=== PATIENT | female | born 1995 | race Caucasian/White ===

== ENCOUNTER 2016-10-06 08:59 | Emergency (ER) | payer BC ==
[~2016-10-06] VITALS: Wt 77.0 kg
[~2016-10-06 08:59] MED LIST: ACET325T33 PO; FERR325T82; PREN-52; [UNRECOGNIZED DRUG - CODE]
[2016-10-06] MEDS ORDERED: OSLT75C PO (09:31)
--- NOTE | 2016-10-06 09:31 | ERD ---
ER Documentation Chief Complaint Date/Time DATE: 10/06/16 Chief Complaint Flu symptoms, 37 weeks HPI The patient is a 21-year-old female, A0, approximately 37 weeks , who presents to the Emergency Department with complaint of flu-like symptoms for the past day. She reports that her symptoms began yesterday, with onset of mild dry cough, body aches, chills, fevers, rhinorrhea and eye lacrimation. She denies any chest pain, palpitations or shortness of breath. Denies neck pain or neck stiffness. Denies ear pain, sore throat or new rashes. Denies headache, dizziness, weakness, lower extremity edema. Denies abdominal pain, nausea, vomiting or diarrhea. Denies vaginal bleeding or new vaginal discharge. Denies any sick contacts. Patient did not receive an influenza vaccination this year. ROS All systems reviewed and are negative except as per history of present illness. Medications Home Meds Active Scripts Oseltamivir Phosphate* (Tamiflu*) 75 Mg Capsule, 75 MG PO BID for 5 Days, CAP Prov:KOKI MARCELINO PA-C 10/06/16 Reported Medications Calcium Carbonate* (Calcium Carbonate*) 600 MG Ca Tab, 600 MG PO DAILY, TAB 10/06/16 Ferrous Sulfate* (Ferrous Sulfate*) 325 Mg Tabec, 325 MG PO DAILY, TAB 10/06/16 Ferrous Sulfate (ASTRID-TIME) 325 Mg Tablet 02/10/14 Vit#42/Fa Cmb#6 (PRENA1 CHEW TABLET) 1 Mg Tab.chew, DAILY 02/10/14 Discontinued Reported Medications Calcium Lactate (Calcium Lactate) 454 Gm Powder, 648 DAILy 02/10/14 Discontinued Scripts Loratadine* (Loratadine*) 10 Mg Tablet, 10 MG PO DAILY, #14 TAB Prov:KOKI MARCELINO PA-C 10/06/16 Acetaminophen* (Tylenol*) 325 Mg Tablet, 1 TAB PO Q6 Y for PAIN AND OR ELEVATED TEMP, #20 TAB Prov:ALICIA LEWIS PA-C 04/15/16 Allergies Allergies: Coded Allergies: No Known Allergy (Unverified , 05/08/16) PMhx/Soc Medical and Surgical Hx: pt denies Medical Hx, pt denies Surgical Hx Hx Alcohol Use: No Hx Substance Use: No Hx Tobacco Use: No Physical Exam Vitals Vital Signs Date Time Temp Pulse Resp B/P Pulse Ox O2 Delivery O2 Flow Rate FiO2 10/06/16 09:08 98.1 111 18 121/88 99 Physical Exam GENERAL: Well-developed, well-nourished, in no acute distress HEENT: Head is normocephalic, atraumatic. No scleral pallor or icterus. Pupils equal, round and reactive to light. Extraocular movements intact. Conjunctiva pink. Nares are patent bilaterally. Bilaterally tympanic membranes are clear with no evidence of erythema, effusion or dulling of the light reflex. Moist mucous membranes. No pharyngeal erythema or exudates. NECK: Supple. No masses, no tenderness, no lymphadenopathy. Full range of motion. No nuchal rigidity. RESPIRATORY: Lungs are clear to auscultation bilaterally. No rales, rhonchi or wheezing. Equal breath sounds. Normal expiratory effort. CARDIOVASCULAR: Regular rate and rhythm. S1 and S2 normal. GASTROINTESTINAL: . Abdomen is soft, non-tender, and non-distended. Normal bowel sounds. EXTREMITIES: No clubbing, cyanosis, or edema. Distal pulses are palpable, 2+ bilaterally. Capillary refill is less than 2 seconds. MUSCULOSKELETAL: No injury or deformities. NEUROLOGIC: The patient is alert, awake, and oriented x 3. No focal neurologic deficits. Gait is observed and normal. INTEGUMENT: Skin is clean, dry and intact. PSYCHIATRIC: Appropriate; Cooperative. Procedures/MDM The patient is a 21-year-old female, A0, approximately 37 weeks , presenting to the Emergency Department with one day of fevers, nasal rhinorrhea, eye lacrimation, myalgias, chills, and cough. On initial presentation, the patient was afebrile, but tachycardic with a heart rate of 111. Otherwise, no tachypnea, no signs of respiratory distress. She had a normal O2 saturation on room air. The differential diagnosis includes, but is not limited to, upper respiratory infection, sepsis, meningitis, otitis media, pneumonia, pertussis, croup, pharyngitis, otitis externa, bronchitis. Upon my review and interpretation of the patient's presentation and overall ER course, I believe the patient's symptoms are most consistent with upper respiratory infection, suspicious for influenza. Given high risk status, will treat empirically with Tamiflu. The patient is well-appearing. The patient had no clinical evidence of pneumonia. Patient's neck was supple, with no altered mental status, and therefore I doubt meningitis. Oropharynx was clear, with no erythema, exudates, petechiae, with no associated anterior cervical lymphadenopathy, and therefore I doubt streptococcal pharyngitis. Tympanic membranes were clear bilaterally, with no erythema or bulging noted, and therefore I doubt otitis media. At this time, the patient is in stable condition and not experiencing any signs of distress, and therefore can be discharged home with a prescription for Tamiflu and strict return precautions for signs of deteriorating or worsening condition. The patient is advised to follow up with her RANGE TECHNICIAN within 1-2 days for reevaluation and further management or return to the ER sooner for any worsening symptoms. I shared my medical decision making and plan with the patient at length and in great detail, and they verbally understand and agree with the plan for further observation and care as an outpatient. At the time of discharge all questions were answered. Departure Diagnosis: Primary Impression: Influenza-like illness Additional Impression: Upper respiratory infection URI type: unspecified URI Qualified Code: J06.9 - Upper respiratory tract infection, unspecified type Condition: Stable Patient Instructions: Influenza , Preventing Common Respiratory Infections Additional Instructions: Follow up with your RANGE TECHNICIAN within 1-2 days for reevaluation and further management. Return to the ED sooner for any new or worsening symptoms. Please go up to L&D immediately following discharge from the ED for clearance. KOKI MARCELINO PA-C Oct 06, 2016 09:30
[2016-10-06] MEDS ORDERED: LORA10TA3 PO (09:32)
[2016-10-06] MEDS ORDERED: CALC600T11 PO (09:58)
[2016-10-06] MEDS ORDERED: FER325 PO (09:58)
== END 2016-10-06 09:46 | disposition home or self-care (01) ==
LOC: FTE 08:59
DX: O99.513 Diseases of the respiratory system complicating pregnancy, third trimester (principal); J06.9 Acute upper respiratory infection, unspecified; R05 Cough; R50.9 Fever, unspecified; J34.89 Other specified disorders of nose and nasal sinuses; Z3A.37 37 weeks gestation of pregnancy
CPT/HCPCS: 99283

== ENCOUNTER 2016-10-06 09:49 | Outpatient (CLI) | payer BC ==
[~2016-10-06] VITALS: Ht 157.5 cm; Wt 77.3 kg
[~2016-10-06 09:49] MED LIST changes: +LORA10TA3 PO; +OSLT75C PO
[2016-10-06 09:58] VITALS: Ht 157.5 cm; Wt 77.3 kg
[2016-10-06] MEDS ORDERED: CALC600T11 PO (09:58)
[2016-10-06] MEDS ORDERED: FER325 PO (09:58)
[2016-10-06 09:59] VITALS: BP 119/82; PULSE 109; RESP 20
[2016-10-06] MEDS ORDERED: BETAMET NA PHOS/AC(6 MG/ML) 5ML INJ IM ONE (11:00)
--- NOTE | 2016-10-06 11:01 | RADRPT ---
PROCEDURE: OB ultrasound for biophysical profile CLINICAL INDICATION: Contractions TECHNIQUE: Multiple sonographic images of the pelvis were obtained. Transabdominal views of the g ravid uterus are available for review. The images were reviewed on a PACS workstation. COMPARISON: None FINDINGS: breathing movement = 2/2 tone = 2/2 motion = 2/2 DREW = 2/2 DREW = 10.9 cm Single live intrauterine with cardiac activity of 173 bpm. position is cephal ic. The placenta is fundal. IMPRESSION: 1. Single live intrauterine gestation. 2. Biophysical profile = 8/8. 3. DREW = 10.9 cm. RPTAT: HH .Hailey Elder MD, MD Date Time Electronically viewed and signed by .Hailey Elder MD, on 10/06/2016 11:01 .G/
[2016-10-06] MEDS ORDERED: AMPICILLIN 1 GM/NS (PMX) 50 ML IVPB SCH (12:00)
== END 2016-10-06 11:21 | disposition home or self-care (01) ==
LOC: OBT 09:49 → L-D 09:50 → OBT 11:21
PROVIDERS: ATTEND Obstetrics & Gynecology
DX: O62.9 Abnormality of forces of labor, unspecified (principal); Z3A.37 37 weeks gestation of pregnancy
CPT/HCPCS: 76818; Z7500; G0463

== ENCOUNTER 2016-10-22 14:22 | Inpatient (IN) | payer BC ==
--- NOTE | 2016-10-06 16:30 | QN ---
Documentation Comment 21 years old with IUP at 37 weeks and 4 days with care with Dr. Marcial presented with cold symptoms and cough and body ache for the past 2 days. Has been seen in ED for above symptoms and was referred to L&D for Ob evaluation. Patient denies any vaginal bleeding, LOF, uterine contractions, decreased movement, fever or chills,. dysuria, headache, blurred vision or epigastric pain. Complains of cough and fatigue and body ache and cold symptoms. She denies any complications in her care. Vitals are stable GA: A&O, in mild distress Lungs; CTA bilaterally O2 normal in Ra CV: RRR Abdomen: Soft, non tender, gravid Fundal height is appropriate for GA Extremities: No calf tenderness, no click, no edema NST,: Cat 1 no contractions on the monitor Assessment: IUP at 37 weeks and 4 days Cold symptoms No obstetric issue at this time Not in labor DC home Labor precaution and FKC Follow up with OB clinic in 2-3 days RT ED if Fever, chills, LOF, vaginal bleeding, decreased movement or any other concerns ORTZI ATKINSON MD Oct 06, 2016 16:29
[~2016-10-22] VITALS: Ht 157.5 cm; Wt 79.0 kg
[~2016-10-22 14:22] MED LIST changes: -ACET325T33 PO; +CALC600T11 PO; +FER325 PO; -LORA10TA3 PO; -[UNRECOGNIZED DRUG - CODE]
[2016-10-22 14:40] VITALS: Ht 157.5 cm; Wt 79.0 kg
--- NOTE | 2016-10-22 15:23 | RADRPT ---
PROCEDURE: US OB. CLINICAL INDICATION: Post dates. TECHNIQUE: Multiple sonographic images of the uterus were obtained. The images were revi ewed on a PACS workstation. COMPARISON: 05/08/2016. FINDINGS: There is a single live intrauterine gestation. heart rate is 137 beats per minute. Measurements were made in order to determine age. The results are as follows: BPD = 8.73 cm. HC = 30.96 cm. AC = 34.21 cm. FL = 6.96 cm. Estimated weight is 3036 +/- 455 grams. LMP growth percentile is 10.3 %. Menstrual age by ultrasound dates is 36 weeks 0 days. The estimated date of delivery is 11/19/2016. Position is cephalic and placenta is fundal grade II. There is no evidence for an abruption or place nta previa. IMPRESSION: 1. Single live intrauterine gestation of 36 weeks 0 days menstrual age by ultrasound dates. 2. The estimated date of delivery is 11/19/2016 by today's ultrasound. RPTAT: QQ .Mc Tiwari MD, MD Date Time Electronically viewed and signed by .Mc Tiwari MD, on 10/22/2016 15:23 .R/
--- NOTE | 2016-10-22 15:25 | RADRPT ---
PROCEDURE: US biophysical profile. CLINICAL INDICATION: Post dates. TECHNIQUE: Multiple sonographic images of the uterus were obtained. The images were revi ewed on a PACS workstation. COMPARISON: 10/06/2016. FINDINGS: There is a single live intrauterine gestation. heart rate is 136 beats per minute. The position is cephalic. The placenta is fundal grade II with no abruption or previa. The DREW is 14.3 cm. (Normal = 5-20 cm.) Breathing Movement: 2 Gross Body Movement: 2 Tone: 2 Qualitative Amniotic Fluid Volume: 2 TOTAL: 8 IMPRESSION: 1. The biophysical score is 8/8. RPTAT: QQ .Mc Tiwari MD, Date Time Electronically viewed and signed by .Mc Tiwari MD, on 10/22/2016 15:25 .R/
--- NOTE | 2016-10-22 17:51 | HP ---
Date/Time of Note Date/Time of Note DATE: 10/22/16 TIME: 17:50 OB - History Hx of Present Free Text/Dictation @40+wks IUGR : 3 Para: 2 Care: Good Care Ultrasounds: Normal mid trimester US Obstetrical Complications: None Medical Complications: None Past Family/Social History * Past Medical, Surgical, Family and Obstetric Histories reviewed from chart. OB Admission Exam Physical Exam HEENT: WNL Abdomen: WNL Extremities: Normal Heart Rate: 140's Accelerations: Accelerations Present Decelerations: No Decelerations Varibility: Moderate Contractions on Admission: 6-10 Minutes Apart OB Assessment/Plan Reason for admission: induction of labor Plan: Induction Other plan: Anticipated SARANYA RENEE M.D. Oct 22, 2016 17:51
[2016-10-22] MEDS ORDERED: MISOPROSTOL 200 MCG TAB PR PRN (18:00)
[2016-10-22] MEDS ORDERED: LACTATED RINGER'S 1,000 ML IV PRN (18:00)
[2016-10-22] MEDS ORDERED: METHYLERGONOVINE 0.2 MG INJ IM PRN (18:00)
[2016-10-22] MEDS ORDERED: BUTORPHANOL 2 MG INJ IV PRN ×2 (18:00)
[2016-10-22] MEDS ORDERED: AMPICILLIN 2 GM/NS (PMX) 100 ML IV ONE (18:00)
[2016-10-22] MEDS ORDERED: LIDOCAINE 1% (MPF) 30 ML INJ INJ PRN (18:00)
[2016-10-22] MEDS ORDERED: CARBOPROST 250 MCG INJ IM PRN (18:00)
[2016-10-22] MEDS ORDERED: DINOPROSTONE 10 MG VAG SUPP VAG ONE (18:00)
[2016-10-22] MEDS ORDERED: OXYTOCIN 30 UNITS/LR 500 ML IV PRN (18:00)
[2016-10-22] MEDS: LACTATED RINGER'S 1,000 ML IV SCH (18:16)
[2016-10-22 18:42] LABS: BASOPHIL # 0.1 10^3/ul (0.0-0.1); BASOPHILS % 0.4 % (0.0-2.0); EOSINOPHILS % 0.4 % (0.0-7.0); HEMATOCRIT 33.8 % (37.0-47.0); HEMOGLOBIN 11.3 g/dl (12.0-16.0); LYMPHOCYTES # 2.1 10^3/ul (0.8-2.9); LYMPHOCYTES % 16.9 % (15.0-51.0); MEAN CORPUSCULAR HEMOGLOBIN 28.4 pg (29.0-33.0); MEAN CORPUSCULAR HGB CONC 33.4 g/dl (32.0-37.0); MEAN PLATELET VOLUME 8.5 fl (7.4-10.4); MONOCYTE # 0.5 10^3/ul (0.3-0.9); MONOCYTES % 4.4 % (0.0-11.0); NEUTROPHIL # 9.5 10^3/ul (1.6-7.5); NEUTROPHILS % 77.9 % (39.0-77.0); PLATELET COUNT 317 10^3/UL (140-440); RED BLOOD COUNT 3.97 10^6/ul (4.20-5.40); RED CELL DISTRIBUTION WIDTH 13.6 % (11.5-14.5); UNCORRECTED WBC 12.2 10^3/ul (4.8-10.8); WHITE BLOOD COUNT 12.2 10^3/ul (4.8-10.8)
[2016-10-22 18:46] LABS: CONDITION 1
[2016-10-22 18:55] LABS: INR 0.91; PROTIME 12.2 Sec (12.2-14.2)
[2016-10-22 18:56] LABS: PARTIAL THROMBOPLASTIN TIME 29.7 Sec (25.0-35.0)
[2016-10-22] MEDS: AMPICILLIN 1 GM/NS (PMX) 50 ML IV SCH (21:34)
[2016-10-23] MEDS: LACTATED RINGER'S 1,000 ML IV SCH (02:02)
[2016-10-23] MEDS: AMPICILLIN 1 GM/NS (PMX) 50 ML IV SCH ×3 (02:02→10:03)
[2016-10-23] MEDS: OXYTOCIN 30 UNITS/LR 500 ML IV SCH ×5 (10:52→20:50)
--- NOTE | 2016-10-23 11:08 | LDN ---
Date/Time of Note Date/Time of Note DATE: 10/23/16 TIME: 11:03 Delivery Summary 20 years old G 3 P2 EDC 10/22/2016 induced with Cervidil yesterday , progress to compleat dilatation and . Placenta Delivered: Spontaneously Meconium: none Perineum intact?: No Perineal laceration: 1 Anesthesia type: Local Estimated blood loss: 100 Sponge & Needle done & correct: Yes All needle counts correct: Yes Any foreign bodies felt in the: No Problems: Delivery Information Sex Sex: male Apgars 1 Minute: 9 5 Minute: 9 Suctioning Nose & mouth suctioned at curtis: Yes Delee suction performed: No Umbilical Cord Umbilical cord with: 3 Vessels Cord presentations: no nuchal cord Cord Blood was obtained: Yes Mother & Baby Disposition Disposition Mom & Baby to Maternity; Good: Yes Mom transferred to: Med/Surg Baby to NICU: No MARTA ALBRECHT MD Oct 23, 2016 11:08
[2016-10-23] MEDS ORDERED: METHYLERGONOVINE 0.2 MG INJ IM PRN (13:00)
[2016-10-23] MEDS ORDERED: SENNA/DOCUSATE NA (8.6MG/50MG) TAB PO PRN (13:00)
[2016-10-23] MEDS ORDERED: BENZOCAINE 20% 56 ML SPRAY TOP PRN (13:00)
[2016-10-23] MEDS ORDERED: MISOPROSTOL 200 MCG TAB PR PRN (13:00)
[2016-10-23] MEDS ORDERED: CARBOPROST 250 MCG INJ IM PRN (13:00)
[2016-10-23] MEDS ORDERED: LANOLIN 7 GM TUBE TOP PRN (13:00)
[2016-10-23] MEDS ORDERED: OXYTOCIN 30 UNITS/LR 500 ML IV PRN (13:00)
[2016-10-23] MEDS ORDERED: WITCH HAZEL/GLYCERIN PAD PR PRN (13:00)
[2016-10-23] MEDS ORDERED: OXYCODONE/ASPIRIN (4.88/325) TAB PO PRN ×2 (13:00)
[2016-10-23] MEDS ORDERED: DIBUCAINE 1% 30 GM OINT PR PRN (13:00)
[2016-10-23] MEDS ORDERED: ACETAMINOPHEN 500 MG TAB PO PRN (13:00)
[2016-10-23 13:15] VITALS: BP 125/71; PULSE 55; RESP 18
[2016-10-23] MEDS: IBUPROFEN 600 MG TAB PO PRN ×3 (13:17→23:27)
[2016-10-23 16:00] VITALS: BP 111/59; PULSE 73; RESP 18
[2016-10-23 20:00] VITALS: BP 124/66; PULSE 79; RESP 20
[2016-10-24] MEDS: OXYTOCIN 30 UNITS/LR 500 ML IV SCH ×6 (00:50→20:50)
[2016-10-24 03:42] VITALS: BP 109/62; PULSE 78; RESP 20
[2016-10-24 07:14] LABS: BASOPHILS % 0.4 % (0.0-2.0); EOSINOPHILS # 0.1 10^3/ul (0.0-0.5); EOSINOPHILS % 1.1 % (0.0-7.0); HEMATOCRIT 28.5 % (37.0-47.0); HEMOGLOBIN 9.6 g/dl (12.0-16.0); LYMPHOCYTES # 2.3 10^3/ul (0.8-2.9); LYMPHOCYTES % 22.5 % (15.0-51.0); MEAN CORPUSCULAR HEMOGLOBIN 29.1 pg (29.0-33.0); MEAN CORPUSCULAR HGB CONC 33.9 g/dl (32.0-37.0); MEAN CORPUSCULAR VOLUME 85.8 fl (82.0-101.0); MEAN PLATELET VOLUME 8.5 fl (7.4-10.4); MONOCYTE # 0.5 10^3/ul (0.3-0.9); MONOCYTES % 4.9 % (0.0-11.0); NEUTROPHIL # 7.3 10^3/ul (1.6-7.5); NEUTROPHILS % 71.1 % (39.0-77.0); PLATELET COUNT 262 10^3/UL (140-440); RED BLOOD COUNT 3.32 10^6/ul (4.20-5.40); RED CELL DISTRIBUTION WIDTH 13.3 % (11.5-14.5); UNCORRECTED WBC 10.3 10^3/ul (4.8-10.8); WHITE BLOOD COUNT 10.3 10^3/ul (4.8-10.8)
[2016-10-24 07:22] LABS: CONDITION 1
[2016-10-24 08:10] VITALS: BP 96/57; PULSE 62; RESP 19
[2016-10-24] MEDS ORDERED: INFLUENZA VIRUS VACCINE 0.5 ML (DISPENSING) IM* ONE (11:00)
[2016-10-24] MEDS: IBUPROFEN 600 MG TAB PO PRN ×2 (11:43→23:34)
[2016-10-24 15:20] VITALS: BP 99/58; RESP 18
--- NOTE | 2016-10-24 16:52 | PN ---
Date/Time of Note Date/Time of Note DATE: 10/24/16 TIME: 16:51 Assessment/Plan VTE Prophylaxis VTE Prophylaxis Intervention: ambulation Assessment/Plan Assessment/Plan ppd1 pt doing well exam wnl continue care Exam/Review of Systems Vital Signs Vitals Vital Signs Date Time Temp Pulse Resp B/P Pulse Ox O2 Delivery O2 Flow Rate FiO2 10/24/16 15:20 98.2 18 99/58 10/24/16 08:10 62 Room Air Intake and Output 10/23/16 10/23/16 10/24/16 15:00 23:00 07:00 Intake Total 375 ml 500 ml Output Total 1150 ml 400 ml Balance -775 ml 100 ml Results Result Diagram: 10/24/16 0631 Results 24 hrs Laboratory Tests Test 10/24/16 06:31 Basophils # 0.0 Basophils % 0.4 Eosinophils # 0.1 Eosinophils % 1.1 Hematocrit 28.5 L Hemoglobin 9.6 L Lymphocytes # 2.3 Lymphocytes % 22.5 Mean Corpuscular Hemoglobin 29.1 Mean Corpuscular Hemoglobin Concent 33.9 Mean Corpuscular Volume 85.8 Mean Platelet Volume 8.5 Monocytes # 0.5 Monocytes % 4.9 Neutrophils # 7.3 Neutrophils % 71.1 Nucleated Red Blood Cells # 0.0 Nucleated Red Blood Cells % 0.0 Platelet Count 262 Red Blood Count 3.32 L Red Cell Distribution Width 13.3 White Blood Count 10.3 Medications Medications Current Medications Oxycodone/Aspirin (Percodan) 1 tab Q3H PRN PO PAIN LEVEL 1-5; Start 10/23/16 at 13:00 Oxycodone/Aspirin (Percodan) 2 tab Q3H PRN PO PAIN LEVEL 6-10; Start 10/23/16 at 13:00 Senna/Docusate Sodium (Senokot-S) 1 tab BID PRN PO CONSTIPATION Last administered on 10/24/16t 08:55; Admin Dose 1 TAB; Start 10/23/16 at 13:00 Diphtheria/ Tetanus/Acell Pertussis 0.5 ml 0.5 ml ONCE ONCE IM* ; Start at 09:00; Stop 10/25/16 at 09:01 Oxytocin/Lactated Ringer's 500 ml @ 0 mls/hr ONCE PRN IV For Hemorrhage Management; Start 1/21/17 at 13:00 Methylergonovine Maleate (Methergine) 0.2 mg ONCE PRN IM VAGINAL BLEEDING; Start 10/23/16 at 13:00 Carboprost Tromethamine (Hemabate) 250 mcg ONCE PRN IM VAGINAL BLEEDING; Start 10/23/16 at 13:00 Misoprostol 1000 mcg 1,000 mcg ONCE PRN MT VAGINAL BLEEDING; Start 10/23/16 at 13:00 Oxytocin/Lactated Ringer's 500 ml @ 125 mls/hr Q4H IV Last administered on 16:00; Admin Dose 125 MLS/HR; Start 10/23/16 at 12:50 Ibuprofen (Motrin) 600 mg Q6H PRN PO PAIN Last administered on 10/24/16 11:43 ; Admin Dose 600 MG; Start 10/23/16 at 13:00 Acetaminophen (Tylenol Tab) 500 mg Q6H PRN PO PAIN AND OR ELEVATED TEMP; Start 10/23/16 at 13:00 ALEJANDRO ARTHUR MD Oct 24, 2016 16:52
[2016-10-24 20:00] VITALS: BP 120/62; PULSE 74; RESP 20
[2016-10-25] MEDS: OXYTOCIN 30 UNITS/LR 500 ML IV SCH ×2 (00:50→04:50)
[2016-10-25 04:17] VITALS: BP 123/70; PULSE 72; RESP 20
[2016-10-25] MEDS: IBUPROFEN 600 MG TAB PO PRN (05:38)
[2016-10-25 08:14] VITALS: BP 104/52; PULSE 56; RESP 18
[2016-10-25] MEDS ORDERED: DIPHTH/TET/ACEL PERTUSS (ADULT) 0.5 ML VIAL IM* ONE (09:00)
--- NOTE | 2016-10-25 13:58 | DS ---
Date/Time of Note Date/Time of Note DATE: 10/25/16 TIME: 13:58 Discharge Summary Admission/Discharge Info Admit Date/Time Oct 22, 2016 at 17:30 Discharge Date/Time Final Diagnosis TERM PREG, NSD Hospital Course UNREMARKABLE Home Meds Active Scripts Oseltamivir Phosphate* (Tamiflu*) 75 Mg Capsule, 75 MG PO BID for 5 Days, CAP Prov:KOKI MARCELINO PAXiomara 10/06/16 Reported Medications Calcium Carbonate* (Calcium Carbonate*) 600 MG Ca Tab, 600 MG PO DAILY, TAB 10/06/16 Ferrous Sulfate* (Ferrous Sulfate*) 325 Mg Tabec, 325 MG PO DAILY, TAB 10/06/16 Ferrous Sulfate (ASTRID-TIME) 325 Mg Tablet 02/10/14 Vit#42/Fa Cmb#6 (PRENA1 CHEW TABLET) 1 Mg Tab.chew, DAILY 02/10/14 CODY BRANDT MD Oct 25, 2016 13:58
== END 2016-10-25 17:43 | disposition home or self-care (01) | DRG 775 ==
LOC: L-D 14:22 → OBT 14:22 → L-D 17:30 → PP1 10-23 13:17
PROVIDERS: ADMIT Obstetrics & Gynecology; ATTEND Obstetrics & Gynecology
PROC: 3E0P7GC Introduction of Other Therapeutic Substance into Female Reproductive, Via Natural or Artificial Opening (ICD-10-PCS; 2016-10-22)
PROC: 10E0XZZ Delivery of Products of Conception, External Approach (ICD-10-PCS; principal; 2016-10-23)
DX: O36.5930 Maternal care for other known or suspected poor fetal growth, third trimester, not applicable or unspecified (principal); Z37.0 Single live birth; Z3A.40 40 weeks gestation of pregnancy
CPT/HCPCS: 76815; 76818; 85025; 85610; 85730; 86592; 86900; 86901; 87340; 90686; 90715; G0463; J0290; J2590; J7120

== ENCOUNTER 2019-04-04 08:34 | Emergency (ER) | payer BC ==
[~2019-04-04] VITALS: Wt 77.7 kg
[~2019-04-04 08:34] MED LIST changes: -CALC600T11 PO; +CALC600T24 PO; -OSLT75C PO
[2019-04-04 08:44] VITALS: BP 106/53; PULSE 55; RESP 20
--- NOTE | 2019-04-04 10:49 | ERD ---
ER Documentation Chief Complaint Chief Complaint 7 wks preg, c/o cramping and umbilical pain, denies vag bleed HPI 23-year-old female presents the emergency department complaining of pelvic cramping. Patient states over the last few days she had a nonspecific visceral cramping in her lower pelvic area. She denies any vaginal bleeding. She denies any other abdominal pain. She reports no nausea or vomiting. ROS All systems reviewed and are negative except as per history of present illness. Medications Home Meds Reported Medications Calcium Carbonate* (Calcium Carbonate*) 600 MG Ca Tab, 600 MG PO DAILY, TAB 10/06/16 Ferrous Sulfate* (Ferrous Sulfate*) 325 Mg Tabec, 325 MG PO DAILY, TAB 10/06/16 Ferrous Sulfate (ASTRID-TIME) 325 Mg Tablet 02/10/14 Vit#42/Fa Cmb#6 (PRENA1 CHEW TABLET) 1 Mg Tab.chew, DAILY 02/10/14 Allergies Allergies: Coded Allergies: No Known Allergy (Unverified , 05/08/16) PMhx/Soc Hx Alcohol Use: No Hx Substance Use: No Hx Tobacco Use: No Smoking Status: Never smoker Physical Exam Vitals Vital Signs Date Temp Pulse Resp B/P (MAP) Pulse Ox O2 O2 Flow FiO2 Time Delivery Rate 04/04/19 97.6 55 20 106/53 100 08:44 (70) Physical Exam GENERAL: The patient is well developed and appropriate for usual state of health in no apparent distress HEENT: Pupils equal, round, and reactive to light. EOMI. There is no scleral icterus. NECK: C-spine is soft and supple, there is no meningismus. There is no cervical lymphadenopathy. LUNGS: Clear to auscultation bilaterally. There are no rales, wheezes or rhonchi. HEART: Regular rate and rhythm, no murmurs, clicks, rubs or gallops. ABDOMEN: Soft, non-tender, non-distended. There are bowel sounds in all four quadrants. No rebound or guarding. EXTREMITIES: There is no peripheral cyanosis or edema. No focal swelling or erythema. NEURO: The patient moves all four extremities with 5/5 strength. Cranial nerves II - XII are intact. Normal gait. Alert and oriented SKIN: There is no apparent rash or petechiae. HEME/LYMPHATIC: There is no evidence of excessive bruising or lymphedema. PSYCHIATRIC: The patient does not appear anxious or depressed. Result Diagram: 04/04/19 0916 Results 24 hrs Laboratory Tests Test 04/04/19 09:16 04/04/19 09:17 White Blood Count 7.6 10^3/ul Red Blood Count 4.26 10^6/ul Hemoglobin 12.3 g/dl Hematocrit 36.4 % Mean Corpuscular Volume 85.4 fl Mean Corpuscular Hemoglobin 28.9 pg Mean Corpuscular Hemoglobin Concent 33.8 g/dl Red Cell Distribution Width 12.4 % Platelet Count 246 10^3/UL Mean Platelet Volume 10.2 fl Immature Granulocytes % 0.500 % Neutrophils % 70.6 % Lymphocytes % 23.6 % Monocytes % 4.2 % Eosinophils % 0.7 % Basophils % 0.4 % Nucleated Red Blood Cells % 0.0 /100WBC Immature Granulocytes # 0.040 10^3/ul Neutrophils # 5.3 10^3/ul Lymphocytes # 1.8 10^3/ul Monocytes # 0.3 10^3/ul Eosinophils # 0.1 10^3/ul Basophils # 0.0 10^3/ul Nucleated Red Blood Cells # 0.0 10^3/ul Beta HCG, Quantitative 957433.0 mIU/ml Urine Color YELLOW Urine Clarity CLOUDY Urine pH 8.0 Urine Specific [place] 1.019 Urine Ketones NEGATIVE mg/dL Urine Nitrite NEGATIVE mg/dL Urine Bilirubin NEGATIVE mg/dL Urine Urobilinogen NEGATIVE mg/dL Urine Leukocyte Esterase TRACE [place]/ul Urine Microscopic RBC 2 /HPF Urine Microscopic WBC 3 /HPF Urine Squamous Epithelial Cells MODERATE /HPF Urine Bacteria FEW /HPF Urine Mucus MODERATE /HPF Urine Hemoglobin NEGATIVE mg/dL Urine Glucose NEGATIVE mg/dL Urine Total Protein NEGATIVE mg/dl Procedures/MDM Patient was taken to a room, seen and evaluated. Comfort measures were initiated. Diagnostic tests were ordered and reviewed. RADIOLOGY: Reviewed with the radiologist REEVALUATION: 1045: Serial examinations of her abdomen remained benign. Patient appears clinically comfortable and appropriate for discharge. MEDICAL DECISION MAKIN-year-old female resents emerged from with pelvic pain associated with . Her diagnostic work-up focused on the evaluation of the and demonstrates evidence of a live intrauterine with no concerns for ectopic. She has no further evidence of other high-risk concerns and seems appropriate for discharge at this time. Departure Diagnosis: Primary Impression: and not yet delivered in first trimester Additional Impression: Pelvic pain during Condition: Stable Patient Instructions: Abdominal Pain, Early REI MANLEY Apr 04, 2019 10:49
== END 2019-04-04 10:53 | disposition home or self-care (01) ==
LOC: FTE 08:34
DX: O26.891 Other specified pregnancy related conditions, first trimester (principal); R10.2 Pelvic and perineal pain; Z3A.01 Less than 8 weeks gestation of pregnancy
CPT/HCPCS: 36415; 76801; 81001; 84702; 85025; 86900; 86901